=== PATIENT | male | born 1995 | race Caucasian/White ===

== ENCOUNTER 2020-04-09 18:07 | Outpatient (REF) | payer BC, SELFPAY | END 2020-04-09 18:08 | disposition home or self-care (01) | LOC: HO.LAB 18:07 | PROVIDERS: Visit Provider Internal Medicine | DX: Z20.828 Contact with and (suspected) exposure to other viral communicable diseases (principal) | CPT/HCPCS: C9803; U0003 ==

== ENCOUNTER 2025-01-29 14:08 | Outpatient (AMB) | payer OTHER, SELFPAY ==
--- NOTE | 2025-01-29 14:11 | A.OFFPC_ITS ---
Vital Signs 01/29/25 14:13 Height 6 ft Weight 201 lb 2 oz BMI 27.3 BP 120/62 Blood Pressure Location Lt brachial Position Sitting Respiration 18 Pulse 66 Pulse Source Pulse Oximeter Temp 97.3 F Temp Source Temporal Artery Scan Pulse Oximetry (%) 95 Oxygen Delivery Method Room Air Intake Visit Reasons: establish care Microbiology Technician Required: No Accompanied by: Self / Same As Patient Allergies No Known Allergies Allergy (Verified 01/29/25 14:29) Medication List - Last Reconciled 01/29/25 by SILVINO Coleman No Known Home Meds Tobacco use date assessed: 01/29/25 Dental Screening Dental Screen Date: 01/29/25 Did you have a dental visit in the last 12 months?: No Did you have a dental problem in the last 6 months where you did not have access to dental care?: No Was dental information given to patient?: No HPI establish care HPI Details Patient representing for establising care and to have a physical examination Previous PCP: [facility] Last visit: a while ago Last PE:same Specialist:n/a OBGYN:n/a Past medical history: Medications: Family HX: maternal grandfather colon ca 26 years old Problem: The patient is a 29-year-old male presenting with psoriasis, gastrointestinal symptoms, and for obtaining referrals for dermatology and gastroenterology. The patient reports a history of psoriasis that began in high school and has persisted since then. He has been under dermatological care since the age of [age] and has tried multiple treatments, with varying success. The patient prefers to continue care with a maintenance repairer who has previously managed his condition effectively. He was treated with Tremfya with positive outcome. The patient experiences gastrointestinal symptoms, including occasional blood on toilet paper, which he attributes to irritation from frequent wiping. He denies any blood in the stool and reports that these symptoms occur infrequently, typically once or twice a month, often after consuming certain foods. The patient also experiences heartburn, particularly after consuming acidic foods, and has identified specific dietary triggers. The patient has a family history of colon cancer, with his maternal grandfather having at a young age from the disease. However, there is no history of colon cancer in his immediate family, including his mother and uncle. [facility], [facility] Medical History (Updated 01/29/25 @ 23:44 by Ren Amaya, RAILROAD WHEELS AND AXLES INSPECTOR-C) Psoriasis Social History (Updated 01/29/25 @ 14:16 by Anahi Colón MA) Household Members: Spouse Housing: House Alcohol intake: current Patient Tobacco Use Status: Never used Tobacco e-Cigarette/Vaping Use: Never Used service: No Current occupational status: employed Current occupation: [employer] Cognitive needs: No Hearing needs: No Vision needs: No Questionnaire PHQ-9 Over the last 2 weeks, how often have you been bothered by any of the following problems? 1. Little interest or pleasure in doing things: not at all 2. Feeling down, depressed, or hopeless: not at all 3. Trouble falling or staying asleep, or sleeping too much: not at all 4. Feeling tired or having little energy: not at all 5. Poor appetite or overeating: not at all 6. Feeling bad about yourself - or that you are a failure or have let yourself or your family down: not at all 7. Trouble concentrating on things, such as reading the newspaper or watching television: not at all 8. Moving or speaking so slowly that other people could have noticed. Or the opposite - being so fidgety or restless that you have been moving around a lot more than usual: not at all 9. Thoughts that you would be better off or of hurting yourself in some way: not at all Total score: 0 Source: Developed by Drs. Daniel Greenwood, Ana Herrmann, Aaron Oh and colleagues, with an educational jessica from [employer]. Thrive Questionnaire Date Thrive assessed: 01/29/25 I am a: Patient What is your living situation today?: I have a steady place to live Within the past 12 months, did the food you bought not last and you didn't have the money to get more?: Never true Within the past 12 months, did you worry whether your food would run out before you got money to buy more?: Never true Do you have trouble paying for medicines?: No Do you have trouble getting transportation to medical appointments?: No Do you have trouble paying your heating and electricity bill?: No Do you have trouble taking care of your child, family member or friend?: No Do you have trouble with day-to-day activities such as bathing, preparing meals, shopping, managing finances, etc.?: No Are you currently unemployed and looking for a job?: No Are you interested in more education?: No Please select the resources that you would like help with: None Currently or been in a relationship where the following occur: I choose not to answer THRIVE Score: 0 AUDIT C Alcohol Use Questionnaire (AUDIT-C) 1. How often do you have a drink containing alcohol?: Monthly or less 2. How many drinks containing alcohol do you have on a typical day when you are drinking?: 1 or 2 3. How often do you have six or more drinks on one occasion?: Never Total Score: 1 DENI-7 AMB Questionnaire DENI-7 Date DENI - 7 assessed: 01/29/25 Feeling nervous, anxious, or on edge: 0 = Not at all Not being able to stop or control worryin = Not at all Worrying too much about different things: 0 = Not at all Trouble relaxin = Not at all Being so restless that it is hard to sit still: 0 = Not at all Becoming easily annoyed or irritable: 0 = Not at all Feeling afraid as if something awful might happen: 0 = Not at all Total DENI-7 score (0-4 normal; 5-9 mild; 10-14 moderate; 15-21 severe): 0 Source: Developed by Drs. Daniel Greenwood, Ana Herrmann, Aaron Oh and colleagues, with an educational jessica from [employer]. Review of Systems Const Denies headache(s) Eyes Denies loss of vision ENT Denies vertigo, Denies dizziness, Denies headache(s) and Denies sore throat Card Denies chest pain, Denies leg edema and Denies lightheadedness Resp Denies cough, Denies hemoptysis and Denies wheezing GI Denies abdominal pain, Denies melena, Denies constipation, Reports heartburn (intermittent depending on what he eats), Reports diarrhea (intermittent) and Denies vomiting Denies dysuria, Denies urinary frequency and Denies urinary urgency Musc Denies arthralgias, Denies joint swelling, Denies numbness and Denies tingling Skin/Breast Reports other (psoriasis) Neuro Denies Abnormal speech present, Denies behavioral changes, Denies vertigo, Denies dizziness, Denies headache(s), Denies loss of vision, Denies memory loss, Denies numbness and Denies tingling Psych Denies anxiety, Denies behavioral changes, Denies depression, Denies memory loss and Denies panic attacks Ryan/Lymph Denies easy bleeding and Denies easy bruising Aller/Immun Denies wheezing Physical exam (Primary Care) Vital Signs: Last Vital Signs Temp 97.3 F 01/29/25 14:13 Pulse 66 01/29/25 14:13 Resp 18 01/29/25 14:13 BP 120/62 01/29/25 14:13 Pulse Ox 95 01/29/25 14:13 Oxygen Delivery Method Room Air 01/29/25 14:13 BMI result Body Mass Index 27.3 Tobacco/Smoking Status: Tobacco use Status Tobacco use date assessed 01/29/25 01/29/25 14:18 Patient Tobacco Use Status Never used Tobacco 01/29/25 14:18 e-Cigarette/Vaping Use Never Used 01/29/25 14:18 PHQ-9: PHQ-9 Score PHQ-9: Total score 0 01/29/25 14:34 Thrive Assessment: Date of Thrive Assessment Date Thrive assessed 01/29/25 01/29/25 14:18 Currently or been in a relationship where the following occur: I choose not to answer Const General: healthy appearing, no acute distress, alert and awake Nutritional Appearance: well nourished Orientation/consciousness: oriented to person, oriented to place and oriented to time HENMT Ears: TM's normal bilaterally General nose exam: Normal nasal mucous membranes and turbinates present Eyes Conjunctivae: conjunctivae normal Sclerae: sclerae normal Pupils: Equal, round and reactive pupils present Neck Neck: Yes no lymphadenopathy and Yes no JVD Thyroid: Thyroid normal Carotids: no bruits Resp Effort & Inspection: normal respiratory effort and not tachypneic Auscultation: no crackles, no rales, no rhonchi and no wheezes Cardio Rate: regular rate Rhythm: regular rhythm Heart sounds: no murmurs and normal S1 and S2 GI Palpation (GI): Soft to palpation, nontender, no hepatomegaly and no splenomegaly Auscultation: normal bowel sounds General: Yes no CVA tenderness Back/Spine/Pelvis Back: no CVA tenderness Skin General skin exam: dry skin Rashes: rashes noted (erythematous plagues to bilateral legs and back) Neuro General: oriented to person, oriented to place and oriented to time Cranial nerves: Yes Equal, round and reactive pupils present Speech: No Abnormal speech present Gait exam (Neuro): Normal gait present Motor exam (neuro): no tremor noted Deep tendon reflexes (DTR's): Right triceps reflex intensity grade: 2+, Left triceps reflex intensity grade: 2+, Rt Biceps (C5, C6): 2+, Left biceps reflex intensity grade: 2+, Right brachioradialis reflex intensity grade: 2+, Left brachioradialis reflex intensity grade: 2+, Right patellar reflex intensity grade: 2+ and Left patellar reflex intensity grade: 2+ Extrem Right upper extremity: full ROM Left upper extremity: full ROM Right lower extremity: full ROM; no edema Left lower extremity: full ROM; no edema Psych Mental Status: mental status grossly normal Speech and movement: Normal speech and movement present Affect: normal affect Attitude: cooperative Thought process: Normal thought process present Coding Level of Care Code New Pt Prev Care 18-39yr([id number] Diagnoses Encounter to establish care with new provider Z76.89 Family history of colon cancer Z80.0 Diarrhea, unspecified type R19.7 Diarrhea type: unspecified type Psoriasis L40.9 Time Spent (min) 33 Assessment & Plan Assessment & Plan (1) Encounter to establish care with new provider: Code(s): Z76.89 - Persons encountering health services in other specified circumstances Category: Medical Plan: Patient is presenting to establish care. He is generally in good health. We will order labs and advise (2) Family history of colon cancer: Code(s): Z80.0 - Family history of malignant neoplasm of digestive organs Category: Medical Plan: The patient maternal grandfather had severe colon cancer at the age of 26. The patient's mother and uncle have been negative for colon ca so far. (3) Diarrhea: Code(s): R19.7 - Diarrhea, unspecified Category: Medical Qualifiers: Diarrhea type: unspecified type Qualified Code(s): R19.7 - Diarrhea, unspecified Plan: The patient has intermittent bouts of diarrhea depending on what he eats. As a result, the patient has noted blood on toilet tissue with frequent wiping. He is not a 100% sure of the actual foods that are causing this, even though dairy has been identified has one of the triggers. Transglutaminase ordered. The patient was also referred to GI for further workup. (4) Psoriasis: Code(s): L40.9 - Psoriasis, unspecified Category: Medical Plan: Bilateral lower legs and back areas with erythematous plagues; he was treated at [facility] in the past with Tremfya with positive outcomes and would like to be referred back there. Referral placed. Orders: Orders Complete Blood Count Auto Diff Today R19.7 - Diarrhea, unspecified, Z00.00 - Encounter for general adult medical examination without abnormal findings TSH reflex Free T4 Today R19.7 - Diarrhea, unspecified, Z00.00 - Encounter for general adult medical examination without abnormal findings Vitamin D 25-OH Total Today R19.7 - Diarrhea, unspecified, Z00.00 - Encounter for general adult medical examination without abnormal findings Transglutaminase Ab IgG Today R19.7 - Diarrhea, unspecified, Z00.00 - Encounter for general adult medical examination without abnormal findings Comprehensive Rye. Panel Fast Today R19.7 - Diarrhea, unspecified, Z00.00 - Encounter for general adult medical examination without abnormal findings Lipid Panel Today R19.7 - Diarrhea, unspecified, Z00.00 - Encounter for general adult medical examination without abnormal findings UA CC w/rflx Micro + Cult Today R19.7 - Diarrhea, unspecified, Z00.00 - Encounter for general adult medical examination without abnormal findings Referrals Dermatology Referral L40.9 - Psoriasis, unspecified Gastroenterology Referral R19.7 - Diarrhea, unspecified, Z80.0 - Family history of malignant neoplasm of digestive organs
[2025-01-29 14:13] VITALS: BP 120/62; PULSE 66; RESP 18; TEMP 36.3; O2SAT 95; BMI 27.3
--- OUTSIDE RECORDS SUMMARY | 2025-01-29 17:58 | XMS_ITS | Clinical Summary ---
Author Organization [facility] Address [address] [place] [address] Care Team Providers Care Loan Closer Name Role Phone Chase Pugh MD Primary Care Provider + Chase Pugh MD Unavailable [phone] Medications Clobetasol Propionate (TEMOVATE) 0.05 % ointment APPLY SPARINGLY TO affected areas on arms, legs and torso TWICE DAILY for 7 days then as needed. 2 9 7 Active Active Problems Problem Noted Date Diagnosed Date Psoriasis 11/05/2016 Family History Medical History Relation Name Comments Other Father psoriasis : Fat her, Uncle Other Other psoriasis : Fat her, Uncle Relation Name Status Comments Father Other Social History Tobacco Use Types Packs/Day Years Used Date Smoking Tobacco: Never Assessed Comments:Smoking Status:No c urrent tobacco use Sex and Gender Information Value Date Recorded Sex Assigned at Not on file Legal Sex Male 6:08 PM EDT Gender Identity Not on file Sexual Orientation Not on file Last Filed Vital Signs Vital Sign Reading Time Taken Comments Blood Pressure 124/78 11/05/2016 10:02 AM EDT Pulse 74 11/05/2016 10:02 AM EDT Temperature 37.1 C (98.7 F) 11/05/2016 10:02 AM EDT Respiratory Rate - - Oxygen Saturation 98% 11/05/2016 10:02 AM EDT Inhaled Oxygen Concentration - - Weight 75.8 kg (167 lb) 11/05/2016 10:02 AM EDT Height 180.3 cm (5' 11 ) 11/05/2016 10:02 AM EDT Body Mass Index 23.29 11/05/2016 10:02 AM EDT Plan of Treatment Health Maintenance Due Date Last Done Comments Hepatitis C Screening 1997 DTaP/Tdap/Td (1 - Tdap) 2015 Hep B (1 of 3 - 19+ 3-dose series) 01/31/2016 COVID-19 Vaccine (1 - 2023-2 5 season) 2025 Influenza (#1) 2025 Zoster (Shingrix) (1 of 2) 2047 HPV Vaccine (No Doses Required) Completed Hep A Aged Out No longer eligi ble based on patient's age to complete this topic Hib Aged Out No longer eligi ble based on patient's age to complete this topic Meningococcal ACWY Aged Out No longer eligible based on patient's age to complete this topic Pneumococcal Aged Out No longer eligi ble based on patient's age to complete this topic Care Teams Loan Closer Relationship Specialty Start Date End Date Chase Pugh MD [address] [place] [address] PCP - General 12/20/22 Chase Pugh MD [address] [place] [address] PCP - Backup PCP Family Medicine 06/16/23
--- OUTSIDE RECORDS SUMMARY | 2025-01-29 17:58 | XMS_ITS | Clinical Summary ---
Author Organization [facility] Address [address] [place] [id number] Care Team Providers Care Operations Asst Name Role Phone Unavailable Primary Care Provider Unavailabl e Allergies No known active allergies Medications No known medications Active Problems No known active problems Social History Tobacco Use Types Packs/Day Years Used Date Smoking Tobacco: Never Smokeless Tobacco: Never Tobacco Cessation:Counseling Given: Not Answered Alcohol Use Standard Drinks/Week Comments Yes 0 (1 standard drink = 0.6 oz pur e alcohol) occ PHQ-2 Answer Date Recorded PHQ-2 Total Score 0 07/12/2023 Sex and Gender Information Value Date Recorded Sex Assigned at Not on file Legal Sex Male 4:14 PM EST Gender Identity Not on file Sexual Orientation Not on file Last Filed Vital Signs Vital Sign Reading Time Taken Comments Blood Pressure 112/68 07/12/2023 7:21 AM EST Pulse 72 07/12/2023 7:21 AM EST Temperature 36 C (96.8 F) 07/12/2023 7:21 AM EST Respiratory Rate 18 07/12/2023 7:21 AM EST Oxygen Saturation 98% 07/12/2023 7:21 AM EST Inhaled Oxygen Concentration - - Weight 91.3 kg (201 lb 3.2 oz) 07/12/2023 7:21 A M EST Height 182.9 cm (6') 07/12/2023 7:21 AM EST Body Mass Index 27.29 07/12/2023 7:21 AM EST Plan of Treatment Health Maintenance Due Date Last Done Comments Hepatitis C Virus Screening 1997 HIV Screening 2010 DTaP/Tdap/Td Vaccines (1 - Tdap) 01/31/2016 Hepatitis B Vaccines (1 of 3 - 19+ 3-dose series) 01/31/2016 HPV Vaccines (1 - 3-dose SCD M series) 01/31/2024 Influenza Vaccine 12/14/2024 COVID-19 Vaccine (2023-2 5 season) 2025 Pneumococcal Vaccine: Pediat billie (0-5 Years) and At-Risk Patients (6 to 49 Years) Aged Out No longer eligible b ased on patient's age to complete this topic Insurance [facility]
--- OUTSIDE RECORDS SUMMARY | 2025-01-29 17:58 | XMS_ITS ---
Author Name [facility] Organization Unknown Problems Problem Status Onset Date Problem Type Date of Resoluti on Source Back pain, unspecified back location, unspecified back pain laterality, unspecified chronicity active EncounterDiagnosisAct HHCCT Lumbar strain, initial encounter active EncounterDiagnosisAct H HCCT Encounters Encounter Type Encounter Reason Primary Diagnosis Location Date Ambulatory [facility] 02/24/2024 Ambulatory Encounter for general adult medical examination without abnormal findings Encounter for general adult medical examination without abnormal findings [facility] 07/12/2023 Ambulatory Dorsalgia, unspecified Dorsalgia, unspecified [facility] 04/15/2023 Ambulatory Dorsalgia, unspecified Dorsalgia, unspecified [facility] 04/15/2023 Ambulatory Low back pain, unspecified Low back pain, unspecified [facility] 03/31/2023 Care Team Organization Name Specialty Phone Email Start Date End [facility] 09/26/2024 025 [facility] 09/08/2024 [facility] 07/12/2023 [facility] NO PCP Primary Care 07/12/2023 07/12/2023 [facility] P[facility],No Primary Care 03/31/2023 08/01/2024
== END 2025-01-29 14:58 | disposition home or self-care (01) ==
LOC: HO.HMCH 14:09
DX: Z76.89 Persons encountering health services in other specified circumstances (principal); Z80.0 Family history of malignant neoplasm of digestive organs; R19.7 Diarrhea, unspecified; L40.9 Psoriasis, unspecified; Z00.00 Encounter for general adult medical examination without abnormal findings

== ENCOUNTER 2025-04-06 09:59 | Outpatient (REF) | payer OTHER, SELFPAY ==
--- OUTSIDE RECORDS SUMMARY | 2025-04-06 10:02 | XMS_ITS | Clinical Summary ---
Author Organization [facility] Address [address] [place] [address] Care Team Providers Care Forestry Instructor Name Role Phone Unavailable Primary Care Provider [...] of 3 - 19+ 3-dose series) 01/31/2016 Influenza Vaccine 12/14/2024 COVID-19 Vaccine ( - 2023-2 5 season) 2025 HPV Vaccines (No Doses Required) Completed Pneumococcal Vaccine: Pediat billie (0-5 Years) and At-Risk Patients (6 to 49 Years) Aged Out No longer eligible b ased on patient's age to complete this topic Insurance [facility]
--- OUTSIDE RECORDS SUMMARY | 2025-04-06 10:02 | XMS_ITS | Clinical Summary ---
Author Organization [facility] Address [address] [place] [address] Care Team Providers Care Medical Secretary Name Role Phone Chase Pugh MD Primary Care Provider + Chase Pugh MD Unavailable [phone] Medications Clobetasol Propionate (TEMOVATE) 0.05 % ointment [...] 3-dose series) 01/31/2016 COVID-19 Vaccine (1 - 2024-2 6 season) 2025 Influenza (#1) 2025 Zoster (Shingrix) [...] age to complete this topic Care Teams Medical Secretary Relationship Specialty Start Date End Date Chase Pugh MD [address] [place] [address] PCP - General 12/20/22 Chase Pugh MD [address] [place] [address] PCP - Backup PCP Family Medicine 06/16/23
[2025-04-06 10:21] LABS: MANUAL DIFF FLAG NO
[2025-04-06 10:49] LABS: Hematocrit 44.4 % (42.0-52.0); Hemoglobin 14.9 g/dl (14.0-18.0); Imm Gran Abs Auto 0.02 X10*3/uL (0.00-0.03); Imm Gran Pct Auto 0.3 % (0.0-0.4); Lymphocytes Absolute Auto 1.6 X10*3/uL (1.2-4.9); Mean Corpuscular HGB Conc 33.6 g/dl (31.0-36.0); Mean Corpuscular Hemoglobin 31.6 pg (27.0-33.0); Mean Corpuscular Volume 94.1 fL (80.0-98.0); NRBC Abs Auto 0.000 X10*3/uL (0.0-0.012); NRBC Pct Auto 0.0 /100WBC (0.0-0.2); Platelet Count 283 X10*3/uL (160-400); Red Blood Count 4.72 X10*6/uL (4.60-5.80); White Blood Count 6.5 X10*3/uL (4.8-10.8)
[2025-04-06 11:01] LABS: Appearance Urine Clear; Glucose Urine UA Negative (Negative); PH 7.0 (5.0-9.0); Specific Gravity - Urine 1.025 (1.005-1.025)
[2025-04-06 11:20] LABS: Alanine Aminotransferase 28 U/L (0-40); Albumin Level 4.7 g/dL (3.5-5.0); Alkaline Phosphatase 74 U/L (39-117); Anion Gap 10 (12-20); Aspartate Amino Transferase 30 U/L (5-37); Blood Urea Nitrogen 20 mg/dL (9-16); Calcium 9.3 mg/dL (8.4-10.2); Carbon Dioxide 29 mmol/L (22-29); Chloride 107 mmol/L (96-108); Cholesterol 129 mg/dL (<200); Estimated Glomerular Filt Rate > 60; HDL Cholesterol 52 mg/dL (>40); Potassium 4.8 mmol/L (3.3-5.1); Sodium 141 mmol/L (135-145); Total Protein 6.9 g/dL (6.5-8.0); Triglycerides 36 mg/dL (<150)
[2025-04-10 20:43] LABS: Transglutaminase Ab IgG <1.0 U/mL
== END 2025-04-06 10:00 | disposition home or self-care (01) ==
LOC: HO.LAB 09:59
DX: Z00.00 Encounter for general adult medical examination without abnormal findings (principal); Z13.6 Encounter for screening for cardiovascular disorders; Z13.21 Encounter for screening for nutritional disorder; R19.7 Diarrhea, unspecified
CPT/HCPCS: 36415; 80053; 80061; 81003; 82306; 84443; 85025; 86364

== ENCOUNTER 2025-05-01 08:32 | Outpatient (REF) | payer OTHER, SELFPAY ==
[2025-05-01 13:00] LABS: Resp Syncy Virus RNA Qual PCR NEGATIVE (Negative); SARS COV2 PCR INHOUSE POSITIVE (Negative)
== END 2025-05-01 08:33 | disposition home or self-care (01) ==
LOC: HO.LNP 08:32
DX: J06.9 Acute upper respiratory infection, unspecified (principal); J02.9 Acute pharyngitis, unspecified
CPT/HCPCS: 87637; 87880

== ENCOUNTER 2025-05-01 08:32 | Outpatient (AMB) | payer OTHER, SELFPAY ==
--- NOTE | 2025-05-01 08:44 | A.OFFPC_ITS ---
Vital Signs 05/01/25 08:47 Height 6 ft Weight 210 lb BMI 28.5 BP 116/66 Blood Pressure Location Lt brachial Position Sitting Respiration 18 Pulse 61 Pulse Source Pulse Oximeter Temp 97.8 F Temp Source Temporal Artery Scan Pulse Oximetry (%) 98 Oxygen Delivery Method Room Air Intake Visit Reasons: sore throat Retail Buyer Required: No Accompanied by: Self / Same As Patient Allergies No Known Allergies Allergy (Verified 05/01/25 08:55) Medication List - Last Reconciled 05/01/25 by SILVINO Coleman No Known Home Meds Tobacco use date assessed: 01/29/25 Dental Screening Dental Screen Date: 01/29/25 HPI HPI Comments History of Present Illness Details The patient is a 30 year old male presenting with a 4-day history of sore throat, fever, and constitutional symptoms. His symptoms began on Tuesday night with sore tonsils, and by Tuesday morning, he developed a headache, sore throat, fever, body sweats, chills, and brain fog. His primary current complaint is a severe sore throat, which he states hurts to swallow and feels like strep throat. He also reports a stuffy nose with postnasal drip and a slight, non-productive cough. He has been managing the pain with Advil every 3-4 hours. 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 He states he has not been this ill in over 10 years. Health Maintenance Social History Results - Labs: Rapid streptococcal antigen test from a throat swab was negative. [facility] Medical History (Updated 05/01/25 @ 09:37 by SILVINO Coleman) Psoriasis Social History Household Members: Spouse Housing: House Alcohol intake: current Patient Tobacco Use Status: Never used Tobacco e-Cigarette/Vaping Use: Never Used service: No Current occupational status: employed Current occupation: [employer] Cognitive needs: No Hearing needs: No Vision needs: No Questionnaire Thrive Questionnaire Date Thrive assessed: 01/29/25 I am a: Patient What is your living situation today?: I have a steady place to live Within the past 12 months, did the food you bought not last and you didn't have the money to get more?: Never true Within the past 12 months, did you worry whether your food would run out before you got money to buy more?: Never true Do you have trouble paying for medicines?: No Do you have trouble getting transportation to medical appointments?: No Do you have trouble paying your heating and electricity bill?: No Do you have trouble taking care of your child, family member or friend?: No Do you have trouble with day-to-day activities such as bathing, preparing meals, shopping, managing finances, etc.?: No Are you currently unemployed and looking for a job?: No Are you interested in more education?: No Please select the resources that you would like help with: None Currently or been in a relationship where the following occur: I choose not to answer THRIVE Score: 0 DENI-7 AMB Questionnaire DENI-7 Date DENI - 7 assessed: 01/29/25 Source: Developed by Drs. Daniel Greenwood, Ana Herrmann, Aaron Oh and colleagues, with an educational jessica from [employer]. Review of Systems Narrative Review of Systems - General: Reports fever, chills, and body sweats. - HEENT: Reports severe sore throat, nasal congestion, and postnasal drip. - Neurological: Reports subjective brain fog. - Respiratory: Reports a slight, non-productive cough. Denies significant shortness of breath. Const Denies body aches, Reports chills, Reports fever(s), Reports headache(s) and Denies poor appetite Eyes Denies loss of vision ENT Denies dysphagia, Denies dizziness, Reports headache(s), Denies odynophagia, Reports post nasal drip and Reports sore throat Card Denies chest pain, Denies syncope, Denies edema, Denies irregular heart rhythm, Denies lightheadedness and Denies dyspnea Resp Reports cough (occasional, non-productive) and Denies dyspnea GI Denies abdominal pain, Denies constipation, Denies dysphagia, Denies diarrhea, Denies nausea, Denies odynophagia and Denies vomiting Reports no additional complaints Musc Reports no additional complaints and Denies abnormal gait Skin/Breast Reports system reviewed and no additional complaints, except as documented Neuro Denies abnormal gait, Denies dizziness, Denies syncope, Reports headache(s) and Denies loss of vision Psych Reports no additional complaints Physical exam (Primary Care) Vital Signs: Last Vital Signs Temp 97.8 F 05/01/25 08:47 Pulse 61 05/01/25 08:47 Resp 18 05/01/25 08:47 BP 116/66 05/01/25 08:47 Pulse Ox 98 05/01/25 08:47 Oxygen Delivery Method Room Air 05/01/25 08:47 BMI result Body Mass Index 28.5 Tobacco/Smoking Status: Tobacco use Status Tobacco use date assessed 01/29/25 05/01/25 08:46 Patient Tobacco Use Status Never used Tobacco 05/01/25 08:46 e-Cigarette/Vaping Use Never Used 05/01/25 08:46 Thrive Assessment: Date of Thrive Assessment Date Thrive assessed 01/29/25 05/01/25 08:46 Currently or been in a relationship where the following occur: I choose not to answer Narrative Physical Exam - Oropharynx: Some whitish exudate noted. - Lungs: Clear to auscultation bilaterally. Const General: cooperative, healthy appearing, comfortable and no acute distress Orientation/consciousness: patient oriented x3 HENMT Head: Yes normocephalic Ears: TM's normal bilaterally General nose exam: Abnormal mucous membranes and turbinates present erythematous bilateral Throat: Yes posterior oropharynx abnormal and Yes cobblestoning (mild) Eyes General: appearance normal, both eyes and all related structures Conjunctivae: conjunctivae normal Neck Neck: Yes full ROM and Yes no lymphadenopathy Resp Effort & Inspection: normal respiratory effort Auscultation: clear to auscultation bilaterally, no crackles, no rales, no rhonchi and no wheezes Cardio Rate: regular rate Rhythm: regular rhythm Heart sounds: S1 normal heart sound present and S2 normal heart sound present GI Palpation (GI): Soft to palpation and nontender Auscultation: normal bowel sounds Skin General skin exam: no rashes or lesions noted Neuro General: patient oriented x3 Gait exam (Neuro): Normal gait present Extrem General: Yes normal to inspection, Yes full ROM and No edema Psych Affect: normal affect Attitude: cooperative Insight: Good insight present (Psych) Judgement: Good judgement present (Psych) Results AMB Rapid Strep AMB Rapid Strep Negative Last Edit by PERLA Joshi on 05/01/25 09:0 2 Results Reviewed Results Reviewed: Laboratory Last Values Strep Scn Rapid Clinic Negative 05/01/25 08:49 Coding Level of Care Code Est Pt Level 3 (99021) Diagnoses Acute pharyngitis, unspecified etiology J02.9 Pharyngitis/tonsillitis etiology: unspecified etiology Time Spent (min) 28 Assessment & Plan Assessment & Plan (1) Acute pharyngitis: Code(s): J02.9 - Acute pharyngitis, unspecified Category: Medical Qualifiers: Pharyngitis/tonsillitis etiology: unspecified etiology Qualified Code(s): J02.9 - Acute pharyngitis, unspecified Plan Plan Patient was informed and verbally consented to the use of an ambient scribe for clinic note documentation during this visit. 1. Acute Pharyngitis The patient presents with symptoms and physical exam findings suggestive of streptococcal pharyngitis, including severe sore throat and pharyngeal exudate. Although the rapid strep test was negative, clinical suspicion remains high due to the potential for false-negative results. A decision was made to treat prophylactically with antibiotics. A prescription for a 10-day course of antibiotics to be taken twice daily was ordered. 2. Upper Respiratory Infection The patient reports nasal congestion, postnasal drip, and a slight cough. A nasal swab was collected for testing. It was recommended to take an [id number] medication such as Claritin to help with symptoms and to ensure adequate fluid intake. Discussion Notes I discussed with the patient that although his rapid strep test was negative, these tests can have false negatives, and his clinical presentation warrants treatment. Therefore, I will treat him prophylactically with antibiotics. I have ordered a 10-day course of antibiotics to be taken twice daily and advised him to take it with food to avoid stomach upset. I also recommended taking Claritin for congestion and staying well-hydrated. We will send out the nasal swab for further testing. I will provide a work note and informed him that he must be on antibiotics for at least 48 hours before returning to work, and we can extend the note if he is not improving. Patient Instructions - Take the prescribed antibiotic twice a day for 10 days. - Be sure to eat something when you take the antibiotic to avoid an upset stomach. - You may take an [id number]-kodrcsw medicine like Claritin to help with your stuffy nose. - Drink plenty of fluids. - Do not return to work until you have been on the antibiotic for at least 48 hours. - Please let us know if you are not feeling better, as we may need to extend your time off from work. Orders: Orders AMB Rapid Strep Screen Today Z13.9 - Encounter for screening, unspecified SARS-CoV2/FLU/RSV Today J06.9 - Acute upper respiratory infection, unspecified AMB Rapid Strep Screen Today Z13.9 - Encounter for screening, unspecified Medications: New amoxicillin-pot clavulanate 875-125 mg 1 tab PO BID 20 tabs 0RF 10 days
[2025-05-01 08:47] VITALS: BP 116/66; PULSE 61; RESP 18; TEMP 36.6; O2SAT 98; BMI 28.5
--- OUTSIDE RECORDS SUMMARY | 2025-05-01 08:49 | XMS_ITS | Clinical Summary ---
Author Organization [facility] Address [address] [place] [id number] Care Team Providers Care Chief Technology Officer Name Role Phone Unavailable Primary Care Provider [...] series) 01/31/2016 Influenza Vaccine 12/14/2024 COVID-19 Vaccine (1 - 2024-2 6 season) 2025 HPV Vaccines (No Doses Required) Completed Pneumococcal Vaccine: Pediat billie (0-5 Years) and At-Risk Patients (6 to 49 Years) Aged Out No longer eligible b ased on patient's age to complete this topic Insurance [facility]
--- OUTSIDE RECORDS SUMMARY | 2025-05-01 08:49 | XMS_ITS | Clinical Summary ---
Author Organization [facility] Address [address] [place] [address] Care Team Providers Care Calender Roll Press Operator Name Role Phone Chase Pugh MD Primary Care Provider + Chase Pugh MD Unavailable [phone] Medications Clobetasol Propionate (TEMOVATE) 0.05 % ointment [...] age to complete this topic Care Teams Calender Roll Press Operator Relationship Specialty Start Date End Date Chase Pugh MD [address] [place] [address] PCP - General 12/20/22 Chase Pugh MD [address] [place] [address] PCP - Backup PCP Family Medicine 06/16/23
== END 2025-05-01 09:08 | disposition home or self-care (01) ==
LOC: HO.HMCH 08:33
DX: Z13.9 Encounter for screening, unspecified (principal); J02.9 Acute pharyngitis, unspecified

== ENCOUNTER 2025-05-10 09:13 | Outpatient (REF) | payer OTHER, SELFPAY ==
[2025-05-12 19:05] LABS: TS Negative Control Passed; TS Panel A 0; TS Panel B 0; TS Positive Control Passed; TSpotTB Negative (Negative)
== END 2025-05-10 09:14 | disposition home or self-care (01) ==
LOC: HO.LAB 09:13
DX: Z11.1 Encounter for screening for respiratory tuberculosis (principal)
CPT/HCPCS: 36415; 86481